=== PATIENT | female | born 1960 | race Two or more races ===

== ENCOUNTER 2025-02-28 13:04 | Outpatient (AMB) | payer MEDICARE, BC, SELFPAY ==
--- NOTE | 2025-02-28 13:12 | A.OFFVIS_ITS ---
Intake Visit Reasons: bladder incontinence SET UA Intake Note: New Patient is present for Bladder Incontinence Urology Rx:none PVR:56mls Blood Thinners:none Imaging completed: none Communications Administrator Required: No Accompanied by: Self / Same As Patient Allergies No Known Allergies Allergy (Mild, Verified 02/28/25 13:15) NA HPI Comments Details: Steffany is a pleasant female. She is a patient of Dr. Colon. She is seen for the following urologic conditions - nonfunctional InterStim Nonfunctional InterStim Would like removal Placed over 10 years ago Discussed removal Review of Systems Const Denies chills and Denies fever(s) Card Reports no additional complaints and Denies syncope Resp Denies cough GI Denies abdominal pain and Denies heartburn Reports as per HPI and Denies change in libido Neuro Denies syncope Psych Denies change in libido Endo Denies change in libido Physical Exam Const General: cooperative, healthy appearing, comfortable and no acute distress Orientation/consciousness: patient oriented x3 HEENT Face and sinus: Yes normal facial exam Mouth: moist mucous membranes Neck Neck: Yes normal visual inspection, Yes full ROM and Yes trachea midline Chest Chest palpation & inspection: normal inspection of the chest Resp Effort & Inspection: normal respiratory effort, able to speak in complete sentences and no respiratory distress GI Inspection: Yes normal to inspection Back/Spine/Pelvis Cervical Spine: normal cervical lordosis Thoracic/Lumbar Spine: thoracic and lumbar spine normal to inspection Skin General skin exam: no rashes or lesions noted Neuro General: patient oriented x3, gait normal, tone normal and moves all extremities Extrem General: Yes normal to inspection and Yes capillary refill normal Office Procedures Post Void Residual Post Residual Void Post Void Residual (PVR): 56 [id number] Void Residual by ultrasound Results AMB Urinalysis, Automated UA Leukoctes 70 Lloyd/uL Last Edit by KAREY Goins on 02/28/25 13:25 UA Nitrite Negative Last Edit by KAREY Goins on 02/28/25 13:25 UA Urobilinogen 0.2 mg/dL Last Edit by KAREY Goins on 02/28/25 13:25 UA Protein 0 mg/dL Last Edit by KAREY Goins on 02/28/25 13:25 UA pH 6.0 Last Edit by KAREY Goins on 02/28/25 13:25 UA Blood 0 Walter/uL Last Edit by Alis Colon, CCMA on 02/28/25 13:25 UA Specific [place] 1.005 Last Edit by Alis Colon, [facility] on 02/28/25 13:2 5 UA Ketone Negative Last Edit by Alis Colon, CCMA on 02/28/25 13:25 UA Bilirubin 0 mg/dL Last Edit by Alis Colon, [facility] on 02/28/25 13:25 UA Glucose 0 mg/dL Last Edit by Alis Colon, [facility] on 02/28/25 13:25 Results Reviewed Results Reviewed: Laboratory Last Values Urine pH (Auto) 6.0 02/28/25 13:24 Specific [place] (Auto) 1.005 02/28/25 13:24 Urine Protein (Auto) 0 mg/dL 02/28/25 13:24 Glucose (UA)(Auto) 0 mg/dL 02/28/25 13:24 Urine Ketones (Auto) Negative 02/28/25 13:24 Urine Blood (Auto) 0 Walter/uL 02/28/25 13:24 Urine Nitrite (Auto) Negative 02/28/25 13:24 Urine Bilirubin (Auto) 0 mg/dL 02/28/25 13:24 Urine Urobilinogen (Auto) 0.2 mg/dL 02/28/25 13:24 Leukocyte Esterase (Auto) 70 Lloyd/uL 02/28/25 13:24 Assessment & Plan Assessment & Plan (1) Sacral nerve stimulator present: Code(s): Z96.82 - Presence of neurostimulator Category: Medical Plan Risks, benefits and alternatives to therapy were discussed. These include but are not limited to infection, bleeding, damage to local organs and tissues, need for further interventions. Anesthetic risks regarding cardiac arrhythmia, blood clots, and potential mortality were discussed. The patient understands the typical recovery time and the outpatient nature of the procedure. After consideration of these risks the patient gives full informed consent and they wish to move ahead with the procedure. - InterStim removal Orders: Orders AMB Urinalysis Automated Today N13.8 - Other obstructive and reflux uropathy, N40.1 - Benign prostatic hyperplasia with lower urinary tract symptoms AMB Post Void Residual by ultrasound Today N40.1 - Benign prostatic hyperplasia with lower urinary tract symptoms Patient Instructions: This note is constructed using voice recognition software. While every effort has been made to ensure accuracy manager bench errors may have been included. Imaging studies, laboratory and physical exam results were discussed and reviewed in detail. No major barriers to patient understanding were identified. An opportunity to ask questions regarding the treatment plan was provided. All questions were answered. The patient expressed understanding and agreement with the above treatment plan. The patient is aware they should contact our office by phone for worsening of their current condition or the appearance of new urologic symptoms. Compliance is encouraged with any medications and followup testing that is ordered. It is a privilege to participate in the urologic care of your patient. If you have any questions or concerns regarding treatment for the above conditions, or other urologic issues, please do not hesitate to contact me. The office telephone contact is [phone]. Sincerely, Dr Terrence Morales MD, [facility] - Urology Compassionate Specialist Care for the Genitourinary System Coding Level of Care Code New Pt Level 4 (66829) Diagnoses Sacral nerve stimulator present Z96.82 CPT Codes Post Residual Void - PVR CPT Code: 40409-Fomi Void Residual by ultrasound ([id number])
== END 2025-02-28 14:06 | disposition home or self-care (01) ==
LOC: HO.HUSH 13:05
PROVIDERS: PCP Internal Medicine; Visit Provider Urology
DX: N40.1 Benign prostatic hyperplasia with lower urinary tract symptoms (principal); N13.8 Other obstructive and reflux uropathy; Z96.82 Presence of neurostimulator
CPT/HCPCS: 99204

== ENCOUNTER → 2025-02-28 13:04 | Outpatient (BNVA) | payer MEDICARE, BC, SELFPAY | PROVIDERS: PCP Internal Medicine; Visit Provider Urology | DX: Z01.818 Encounter for other preprocedural examination (principal); N13.8 Other obstructive and reflux uropathy; Z96.82 Presence of neurostimulator | CPT/HCPCS: 51798; 81003; 99202 ==